=== PATIENT | male | born 1960 | race Caucasian/White ===

== ENCOUNTER 2016-05-05 14:56 | Day surgery (SDC) | payer MEDICAID ==
[~2016-05-05 14:56] MED LIST: CEFAZOLIN 2 GM/DEXTROSE/100 ML BAG IV ONE; DEXAMETHASONE 4 MG/ML VIAL ONE; LIDO/EPI 1% **Not for Epidural 20 ML MDV ONE; LIDOCAINE 2% 5 ML SDV ONE; MIDAZOLAM 2 MG/2 ML VIAL ONE; ONDANSETRON 4 MG/2 ML VIAL ONE; PHENYLEPHRINE 10 MG/ML SDV ONE; PHENYLEPHRINE HCL 100 MCG/ML SYR ONE; PROPOFOL 200 MG/20 ML VIAL ONE; REMIFENTANIL HCL 1 MG VIAL ONE; SCOPOLAMINE HYDROBROMIDE 1.5 MG PATCH TD ONE; ceFAZolin 2 GM/DEXTROSE 100 ML IV ONE; fentaNYL 100 MCG/2 ML INJ ONE
[2016-05-05] MEDS ORDERED: HYDROCOD/APAP 7.5/325 IN 15ML UDCUP PO PRN (15:27)
[2016-05-05] MEDS ORDERED: ACETAMINOPHEN 500 MG TAB PO PRN (15:28)
[2016-05-05] MEDS ORDERED: ONDANSETRON DISINTEGRATING 4 MG TAB PO PRN (15:29)
[2016-05-05] MEDS ORDERED: OXYCODONE/APAP 5/325 TAB ONE (16:04)
--- NOTE | 2016-05-10 20:19 | GOP ---
[f rep st] OPERATIVE REPORT DATE OF OPERATION: 05/05/2016 SURGEON: Charleen Samuel MD ANESTHESIA: General. PREOPERATIVE DIAGNOSIS: Large left thyroid nodule, suspicious for papillary carcinoma on fine needle aspiration. POSTOPERATIVE DIAGNOSIS: 1. Large left thyroid nodule, suspicious for papillary carcinoma on fine needle aspiration. 2. 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 PROCEDURE PERFORMED: 1. Left hemithyroidectomy with isthmusectomy. 2. Recurrent laryngeal nerve monitoring using the [employer] NIM system. FINDINGS: The patient was found to have a very large left thyroid nodule that took up the majority o f the left lobe. This was removed without difficulty with the isthmus. The right side was not remov ed since we did not have a confirmatory diagnosis of carcinoma. The left recurrent laryngeal nerve w as noted to be intact and stimulated at the end of the procedure. At least 1 parathyroid on the left was noted, which was the superior 1 that was left in situ. ESTIMATED BLOOD LOSS: Minimal. INDICATIONS: Mr. Hare is a pleasant 55-year-old male, who had an incidental finding of a 7 cm left thyroid nodule on a CT scan after he fell and got the CT scan done for his neck. He was referred to Dr. Lord by the ER and an FNA was done of the nodule, which showed a suspicion for papillary thyroi d carcinoma. He was referred to me for surgery. We discussed initially about doing a hemithyroidec michael with frozen and possible need for a completion thyroidectomy in the future versus doing a total on the basis of there being a very large nodule on the left, as well as a 2 cm nodule on the right. He wanted to go with the former and so we proceeded with just a left bruno and had the frozen determin e whether we would do a total or not. His preoperative PTH in case of a total thyroidectomy was 41. DESCRIPTION OF PROCEDURE: The patient was first seen in the preoperative area and informed consent w as obtained. He was then brought back to the operating room, where anesthesia sedated and intubated him using the NIM tube. The bed was turned 180 degrees, and he was prepped and draped in a sterile f ashion after the NIM monitor was hooked up and confirmed to be stimulating accurately. At this point, I then made a 5 cm incision in between the sternal notch and the cricoid cartilage in a skin crease. About 7 cc of 1% lidocaine with 1:100,000 epinephrine were injected into the subcutan eous tissues in this region prior and then a 15 blade was used to make the skin incision, as well as through the subcutaneous tissues. Once this was done, the platysma was divided and then a subplatysm al flap was elevated superiorly and inferiorly, and then a Weitlaner retractor was used to give us be tter access. At this point, the strap muscles were divided in the midline and then the strap muscles were elevated off the underlying thyroid on the left side, and then retracted laterally. Once this one, we immediately were able to see the very large thyroid nodule that took up the majorit y of our incision. We gently continued using blunt and sharp dissection, as well as the Harmonic Railpod ssor instrument to release the thyroid from the surrounding tissues laterally, as well as inferiorly. We then turned our attention to the superior aspect and a Marcela was used to grasped the superior po le of the thyroid and retract inferiorly slightly. A Burlisher was then used to gently remove the ti ssue off the pedicles and then the superior thyroid pedicle was found, and the proximal portion of th is was clipped using a medium sized clip and then the Harmonic instrument was used to clamp, ligated and divide the artery and the vein. Once this was done, this released the thyroid significantly and then used finger retraction on the thyroid, and continued our dissection laterally, as well as inferi larry, then finding the inferior thyroid vessels and clamp, ligating, and dividing these as well. At this point, we then began coming more laterally and medially. The superior parathyroid was noted in its normal position and this was kept in situ and looked to have good blood supply after the thyro id was removed. We did not easily identify the inferior parathyroid gland. We continued dissecting medially until the thyroid nodule was basically released from its position an d was able to be elevated superiorly and medially. At this point, blunt dissection was used to find the recurrent laryngeal nerve and once this found, the tissue was dissected over the top of this and then released, thereby releasing the entire thyroid off the underlying trachea. Gaxiola ligament was d ivided using a combination of bipolar cautery, as well as cold knife division and then once this was done, the isthmus was elevated of the underlying trachea and then the Harmonic scissors were used to divide the isthmus at its junction with the right thyroid lobe. The gland was inspected and then sen t off the field for frozen pathology. After this was done, we evaluated the right thyroid. It was noted to have at least 1 nodule inferior ly, which was previously known and it was soft to palpation. There were no overt lymph nodes within the central neck on the left side, and the recurrent laryngeal nerve was intact and stimulated postop eratively. We then received the frozen section diagnosis from the pathologist, whom I spoke to. He stated that it was very difficult for them to tell whether this was a follicular lesion or a possible follicular variant of papillary thyroid carcinoma, so they would need to sent it for further testing. So, at this point since we did not have a definitive diagnosis of carcinoma, we left the right thyroi d lobe there. Any small bleeding vessels were cauterized using the bipolar cautery. A small 10-Fren ch round ALEJANDRA drain was placed and exiting the left side of the skin incision inferiorly. We then clos ed the strap muscles using 3-0 Vicryl in interrupted fashion, as well as the platysma in the same fas hion. We then closed the skin using a 5-0 Monocryl in a running, subcuticular fashion. Once this do ne, the wound was cleaned. Mastisol was coated over the skin above and below the incision, and then ASteri-Strips were placed for added protection. At this point, the patient was turned back over to Anesthesia, where he was awoken and extubated, and taken to PACU in stable condition. There were no complications. He tolerated the procedure well, a nd his voice was strong and clear postoperatively. CO SURGEON: Lev Perez. COMPLICATIONS: None. /[id number]/MODL
[2016-05-11 12:47] LABS: PATH CONS ACCESSION # HR17-2785 (()); PATH CONS COMMENT See Comments (()); PATH CONS FINAL DIAGNOSIS See Comments (()); PATH CONS MATERIAL See Comments (()); PATH CONS REFERRING ADDRESS See Comments (())
== END 2016-05-05 16:20 | disposition home or self-care (01) ==
LOC: FSGY 14:56
PROVIDERS: ATTEND Otolaryngology
PROC: 0GTG0ZZ Resection of Left Thyroid Gland Lobe, Open Approach (ICD-10-PCS; principal; 2016-05-05 11:00)
DX: E04.2 Nontoxic multinodular goiter (principal); Z85.46 Personal history of malignant neoplasm of prostate; Z87.891 Personal history of nicotine dependence
CPT/HCPCS: J0690; J1100; J2250; J2370; J2405; J2704; J3010

== ENCOUNTER → 2016-12-27 | Outpatient (CLI) | payer MEDICAID | LOC: BMCIMAGING 13:30 | PROVIDERS: ATTEND Internal Medicine Endocrinology, Diabetes & Metabolism | DX: Z08 Encounter for follow-up examination after completed treatment for malignant neoplasm (principal); E04.1 Nontoxic single thyroid nodule; Z85.850 Personal history of malignant neoplasm of thyroid | CPT/HCPCS: 76536-PO ==

== ENCOUNTER → 2018-01-22 | Outpatient (CLI) | payer MEDICAID | LOC: BMCIMAGING 13:36 | PROVIDERS: ATTEND Internal Medicine Endocrinology, Diabetes & Metabolism | DX: Z08 Encounter for follow-up examination after completed treatment for malignant neoplasm (principal); Z85.850 Personal history of malignant neoplasm of thyroid; E04.1 Nontoxic single thyroid nodule | CPT/HCPCS: 76536-PO ==

== ENCOUNTER → 2018-04-29 | Outpatient (CLI) | payer MEDICAID ==
[~2018-04-29] MED LIST changes: -CEFAZOLIN 2 GM/DEXTROSE/100 ML BAG IV ONE; -DEXAMETHASONE 4 MG/ML VIAL ONE; +GADOBUTROL 10 ML VIAL IVP ONE; -LIDO/EPI 1% **Not for Epidural 20 ML MDV ONE; -LIDOCAINE 2% 5 ML SDV ONE; -MIDAZOLAM 2 MG/2 ML VIAL ONE; -ONDANSETRON 4 MG/2 ML VIAL ONE; -PHENYLEPHRINE 10 MG/ML SDV ONE; -PHENYLEPHRINE HCL 100 MCG/ML SYR ONE; -PROPOFOL 200 MG/20 ML VIAL ONE; -REMIFENTANIL HCL 1 MG VIAL ONE; -SCOPOLAMINE HYDROBROMIDE 1.5 MG PATCH TD ONE; -ceFAZolin 2 GM/DEXTROSE 100 ML IV ONE; -fentaNYL 100 MCG/2 ML INJ ONE
== END ==
LOC: FIMAGING 10:03
PROVIDERS: ATTEND Psychiatry & Neurology Neurology
DX: J01.00 Acute maxillary sinusitis, unspecified (principal)
CPT/HCPCS: A9585

== ENCOUNTER → 2018-06-27 | Outpatient (CLI) | payer MEDICAID ==
[~2018-06-27] MED LIST changes: -GADOBUTROL 10 ML VIAL IVP ONE; +LIDOCAINE 1% 300 MG/30 ML SDV ONE
== END ==
LOC: FIMAGING 12:16
PROVIDERS: ATTEND Radiology Diagnostic Radiology
PROC: 0G9H3ZZ Drainage of Right Thyroid Gland Lobe, Percutaneous Approach (ICD-10-PCS; principal; 2018-06-27)
DX: D49.7 Neoplasm of unspecified behavior of endocrine glands and other parts of nervous system (principal)